=== PATIENT | female | born 1980 | race Caucasian/White ===

== ENCOUNTER 2019-09-12 13:19 | Emergency (ER) | payer BC, SELFPAY ==
[2019-09-12 13:26] VITALS: BP 146/91; PULSE 109; RESP 19; TEMP 37; O2SAT 99; BMI 29.0
--- NOTE | 2019-09-12 13:40 | HMH.EDUTC ---
[facility] [place]: Viral syndrome Disposition: Home, Self-Care Condition on Discharge: Good Instructions: DI for Viral Syndrome Additional Instructions: Drink plenty of fluids. Take tylenol or ibuprofen for pain or fever. Take the medications as directed. Follow up with your regular doctor. GO TO THE ER FOR ANY WORSENING SYMPTOMS FOLLOW THE DIRECTIONS ON THE COVID-19 HAND OUT THAT WE GAVE YOU REGARDING SELF-ISOLATION UNTIL YOU KNOW YOUR COVID-19 RESULTS Prescriptions: Ondansetron [Zofran 4mg ODT] 4 mg PO Q8HP PRN #20 tab.rapdis PRN Reason: Nausea Transmission Status: Received by [facility] Azithromycin [Z-Ronan 250mg Tab*] 250 mg PO UD DOSE PK #6 tab Transmission Status: Received by [facility] Referrals: Silvino Swan MD [Primary Care Provider] - Forms: Work/School Release Time of Disposition: 14:04 Medical Decision Making - Medical Records Medical records reviewed: No: I reviewed the patient's medical records. - Lukas Inquiry Pt receiving controlled substance: No Vital Signs: 09/12/19 13:26 09/12/19 14:05 Temperature 98.6 F 98.6 F Temperature Source Oral Pulse Rate 109 H Pulse Rate [Right Brachial] 109 H Respiratory Rate 19 19 Blood Pressure 146/91 H Blood Pressure [Right Arm] 146/91 H Blood Pressure Mean [Right Arm] 109 Blood Pressure Source [Right Arm] Automatic Cuff Blood Pressure Position [Right Arm] Sitting 02 Sat by Pulse Oximetry 99 Oxygen Delivery Method Room Air Orders (Tests/Meds): ORDERS Category Date Time Status Coronavirus 19 Swab (OUTPT) Routine Lab 09/12/19 13:55 [place] [facility] [place] - General Stated complaint: runny nose, congestion, weakness, v/d Time Seen by Provider: 09/12/19 13:40 Mode of Arrival: Ambulatory Source of Information: Patient Limitations: No Limitations Description of Symptoms (Recalled from Triage Doc. by RN): PATIENT C/O COUGH, RUNNY NOSE, FATIGUE, CHILLS X 3 DAYS HEENT Symptoms (Recalled from RN notes): No Resp Symptoms (Recalled from RN notes): Yes Skin Symptoms (Recalled from RN notes): No MS Symptoms (Recalled from RN notes): No Functional Status (Recalled from RN notes): WNL - History of Present Illness Provider Complaint: She c/o nasal drainage, fever, chills, body aches, and malaise for the past 2 days. She denies any known exposure to COVID-19, but she works at the [employer] so she is around a lot of the public. - Related Data Previous Rx's Medication Instructions Recorded Albuterol Sulfate [Albuterol HFA 1 - 2 puffs IH Q4-6H PRN #1 inh 04/25/19 Inhaler] hydroxyzine pamoate 25 mg capsule 25 mg PO QHS #30 cap 07/17/19 meloxicam 15 mg tablet 15 mg PO DAILY #30 tab 07/17/19 fluoxetine 40 mg capsule 40 mg PO DAILY #90 cap 07/22/19 Azithromycin [Z-Ronan 250mg Tab*] 250 mg PO UD DOSE PK #6 tab 09/12/19 Ondansetron [Zofran 4mg ODT] 4 mg PO Q8HP PRN #20 tab.rapdis 09/12/19 Allergies Allergy/AdvReac Type Severity Reaction Status Date / Time Penicillins Allergy Mild I-RASH Verified 07/17/19 10:25 - Worker's Comp Is this a Worker's Comp case?: No [facility] History - Hepatitis A Screen Drug use history?: No High risk sexual behaviors?: No History of sexually transmitted infection?: No Currently employed?: No Childcare worker?: No Do you have indoor plumbing?: Yes Do you have electricity?: Yes Attestation statement:: This patient has been screened for Hepatitis A risk factors. I have reviewed the patient's past medical history: Yes Medical History: Reports:: Migraine Denies:: Cancer, Diabetes Mellitus Type 1, Diabetes Mellitus Type 2, MRSA Comment: Anxiety, Depression Other Surgeries: Yes: Amputation: No Fractures: No - Social History Smoking Status: Current every day smoker Tobacco Type: cigarettes # Packs/Day (cigarettes): 1 Alcohol Intake: never Alcohol Intake Frequency:: 3 or more drinks per day Substance Use Type: fo
[2019-09-12 14:05] VITALS: BP 146/91; PULSE 109; RESP 19; TEMP 37; O2SAT 99
== END 2019-09-12 14:07 | disposition home or self-care (01) ==
PROVIDERS: Emergency Provider Nurse Practitioner Family; PCP Emergency Medicine
DX: B34.9 Viral infection, unspecified (principal); Z03.818 Encounter for observation for suspected exposure to other biological agents ruled out; F17.210 Nicotine dependence, cigarettes, uncomplicated; Z88.0 Allergy status to penicillin
CPT/HCPCS: 99201; U0003

== ENCOUNTER 2020-11-10 12:17 | Emergency (ER) | payer BC, SELFPAY ==
--- NOTE | 2020-11-10 12:12 | ECG_ITS ---
APPROVED REPORT Exam: Resting ECG HR:75 bpm ECG Measurements Heart Rate 75 AXES CA 112 P 44 QRSd 82 QRS 13 QT 390 T 40 QTc 435 Conclusion Normal sinus rhythm Normal ECG Electronically signed by : Man Funk MD 11/12/2020 17:51:15
[2020-11-10 12:18] VITALS: BP 135/88; PULSE 84; RESP 17; TEMP 37.1; O2SAT 100; BMI 31.4
--- NOTE | 2020-11-10 12:21 | XR_ITS ---
PROCEDURE: XR CHEST PORTABLE CLINICAL HISTORY: cp COMPARISON: CR XR CHEST 2V from 04/25/2019 CR XR CHEST PORTABLE from 04/29/2019 FINDINGS: The cardiomediastinal silhouette and pulmonary vascularity are within normal limits. The lungs are clear without infiltrates, suspicious nodules, or pleural effusions. No acute bony abnormalities. IMPRESSION: No acute findings. Dictated by: Branden Palacios MD 11/10/2020 14:32 Branden Palacios MD in [place] 11/10/2020 14:32
[2020-11-10 12:26] LABS: Basophils # 0.1 K/mm3 (0-0.2); Basophils % 0.9 % (0.1-2.0); Eosinophils # 0.1 K/mm3 (0.0-0.4); Eosinophils % 1.1 % (0.1-12.0); Hematocrit 42.2 % (37.0-47.0); Hemoglobin 13.6 g/dL (12.2-16.2); Lymphocytes # 2.1 K/mm3 (0.7-4.5); Lymphocytes % 26.9 % (10-50); Mean Corpuscular HGB Conc 32.4 g/dL (31.8-35.4); Mean Corpuscular Hemoglobin 31.3 pg (27.0-31.2); Mean Corpuscular Volume 96.7 fl (81-99); Mean Platelet Volume 8.1 fl (7.4-10.4); Monocytes # 0.3 K/mm3 (0.1-1.0); Monocytes % 4.3 % (1.7-9.3); Neutrophils # 5.3 K/mm3 (1.8-7.8); Neutrophils % 66.7 % (37.0-80.0); Platelet Count 404 K/mm3 (142-424); Red Blood Count 4.36 M/mm3 (4.20-5.40); Red Cell Distribution Width 13.7 % (11.5-17.5); White Blood Count 7.9 K/mm3 (4.8-10.8)
[2020-11-10 12:37] LABS: Chloride 108 mmol/L (98-107); Sodium 139 mmol/L (136-145)
--- NOTE | 2020-11-10 12:37 | CT_ITS ---
PROCEDURE: CT HEAD/BRAIN WO CON CLINICAL INDICATION: syncope COMPARISON: No exams were available for comparison TECHNIQUE: Axial images obtained. All CT scans at the facility use one or more dose reduction, viz: automated exposure control, ma/kV adjustment per patient size (including targeted exams where dose is matched to indication, i.e. head), or iterative reconstruction technique. FINDINGS: No midline shift, mass effect, intracranial hemorrhage, hydrocephalus, or extra-axial fluid collection is evident. The calvarium has an unremarkable appearance. A small amount fluid in the left mastoid sinus. Mild mucosal thickening of the ethmoid sinus on the left. Small left maxillary retention cyst laterally at approximately 11 mm. IMPRESSION: No acute intracranial finding Dictated by: Branden Palacios MD 11/10/2020 13:04 Branden Palacios MD in [place] 11/10/2020 13:04
--- NOTE | 2020-11-10 12:37 | HMH.EDGENADL ---
ED Disposition Clinical Impression: Atypical chest pain Disposition: Home, Self-Care Condition on Discharge: Good Referrals: Provider,Referral, [Referring] - (1-2 days) Time of Disposition: 13:56 - Critical Care Critical Care Time: No Attestation: On 11/10/20, the high probability of a clinically significant, sudden or life threatening deterioration of the following system(s) required my full and direct attention, intervention and personal management. The time I documented below is in addition to time spent performing reported procedures but includes the following listed in this critical care notation. Medical Decision Making - Medical Records Medical records reviewed: Yes: I reviewed the patient's medical records. - Lukas Inquiry Pt receiving controlled substance: No Vital Signs: 11/10/20 12:18 11/10/20 13:00 Temperature 98.7 F Temperature Source Oral Pulse Rate 65 Pulse Rate [Right] 84 Respiratory Rate 17 16 Blood Pressure 119/80 Blood Pressure [Right Arm] 135/88 Blood Pressure Mean [Right Arm] 103 Blood Pressure Source [Right Arm] Automatic Cuff Blood Pressure Position [Right Arm] Supine 02 Sat by Pulse Oximetry 100 100 Oxygen Delivery Method Room Air - Lab Data Lab results reviewed: Yes: I reviewed the patient's lab results. Lab Results 11/10/20 10:15: SARS-CoV-2 (PCR) Not detected, Influenza A Untype (PCR) Not detected, Influenza Type B (PCR) Not detected 11/10/20 12:19: WBC 7.9, RBC 4.36, Hgb 13.6, Hct 42.2, MCV 96.7, MCH 31.3 H, MCHC 32.4, RDW 13.7, Plt Count 404, MPV 8.1, Neut % (Auto) 66.7, Lymph % (Auto) 26.9, [place] % (Auto) 4.3, Eos % (Auto) 1.1, Baso % (Auto) 0.9, Neut # (Auto) 5.3, Lymph # (Auto) 2.1, [place] # (Auto) 0.3, Eos # (Auto) 0.1, Baso # (Auto) 0.1 11/10/20 12:19: Sodium 139, Potassium 4.0, Chloride 108 H, Carbon Dioxide 26, Anion Gap 9.0, BUN 8, Creatinine 0.60, Estimated Creat Clear 178, Estimated GFR 112, Est GFR ( Amer) 135, Glucose 99, Calcium 9.0, Total Bilirubin 0.3, AST 29, ALT 15, Alkaline Phosphatase 78, Troponin I < 0.01, Total Protein 7.9, Albumin 4.4, Globulin 3.5 H, Albumin/Globulin Ratio 1.3 Result diagrams: 11/10/20 12:19 11/10/20 12:19 Orders (Tests/Meds): ED MEDICATIONS Discontinued Medications Generic Name Dose Route Start Last Admin Trade Name Mark PRN Reason Stop Dose Admin Aspirin 324 mg 11/10/20 12:21 11/10/20 12:30 Aspirin 81mg Chewable Tablet PO 11/10/20 12:22 324 mg ONCE ONE Administration ORDERS Category Date Time Status XR chest portable Stat Exams 11/10/20 12:21 Taken Troponin I Q3H Lab 11/10/20 15:30 Ordered - Radiology Data #1 Image(s): Chest Image Reviewed: Yes I reviewed the patient's radiology results Preliminary Findings: Normal/NAD - CT Data CT Scan: Head Time Received: 13:00 Preliminary Findings: Normal/NAD - ECG Data Tracing #1 I reviewed this ECG and interpreted as documented below: Normal sinus rhythm, 75 bpm, no ST elevation or depression, normal intervals, no ectopy. ECG initial impression date: 11/10/20 ECG initial impression time: 12:15 - JOHANNY Score for Non-Stemi Age of Patient: 30-39 years old Heart Rate: 70-89 bpm Systolic Blood Pressure: 120-139 mmhg Serum Creatinine: 0.40-0.79 mg/dl CHF [place] Class: IV-Cardiogenic Shock Other Risk Factors: None Non-Stemi Risk Score: 114 Medical Decision Narrative: 40yo F evaluated for chest pain. Patient then adds to her story that she had a syncopal event on Monday. Patient is in no acute distress on initial evaluation. Her NIH stroke score is 0. Patient's physical exam is benign. EKG is benign as above. Chest x-ray shows no acute findings. Patient's heart score is 1. CT of the head is benign. Troponin is negative and what expected to be positive if she had a cardiac pathology as she has had symptoms now for 2 days. Patient is appropriate and stable for discharge. Have encouraged her to follow-up with her PC
[2020-11-10 12:40] LABS: Alanine Aminotransferase 15 U/L (12-78); Albumin Level 4.4 g/dl (3.5-5.0); Albumin/Globulin Ratio 1.3 (1.1-1.8); Alkaline Phosphatase 78 U/L (38-126); Aspartate Amino Transferase 29 U/L (14-36); Bilirubin,Total 0.3 mg/dl (0.2-1.3); Blood Urea Nitrogen 8 mg/dl (7-17); Carbon Dioxide 26 mmol/L (22.0-30.0); Creatinine Clearance Estimated 178 mL/min (50-200); Estimated Glomerular Filt Rate 112 ml/min (>60); GFR (African American) 135 ML/MIN (>60); Globulin 3.5 g/dL (1.3-3.2); Total Protein,Serum 7.9 g/dl (6.3-8.2)
[2020-11-10 12:41] LABS: Glucose 99 mg/dl (74-100)
--- NOTE | 2020-11-10 12:45 | PC.NURSE ---
pt to radiology
[2020-11-10 12:46] LABS: Coronavirus 19, PCR Not Detected (NotDetected); Influenza A, PCR Not Detected (NotDetected); Influenza B, PCR Not Detected (NotDetected)
[2020-11-10 12:54] LABS: Troponin I < 0.01 ng/ml (0.00-0.034)
[2020-11-10 13:00] VITALS: BP 119/80; PULSE 65; RESP 16; O2SAT 100
[2020-11-10 14:05] VITALS: BP 114/79; PULSE 66; RESP 16; O2SAT 100
[2020-11-10 14:24] VITALS: BP 132/90; PULSE 76; RESP 16; TEMP 36.8; O2SAT 98
== END 2020-11-10 14:25 | disposition home or self-care (01) ==
PROVIDERS: Emergency Provider Family Medicine; PCP Physician Assistant
DX: R07.89 Other chest pain (principal); R55 Syncope and collapse; F17.210 Nicotine dependence, cigarettes, uncomplicated; I10 Essential (primary) hypertension; G43.709 Chronic migraine without aura, not intractable, without status migrainosus; Z79.899 Other long term (current) drug therapy; Z20.822 Contact with and (suspected) exposure to COVID-19
CPT/HCPCS: 70450; 71045; 80053; 84484; 85025; 93005; 99283; C9803; U0003; U0005

== ENCOUNTER → 2021-02-23 11:24 | Outpatient (CLI) | payer BC, SELFPAY | PROVIDERS: Visit Provider Nurse Practitioner | DX: Z20.822 Contact with and (suspected) exposure to COVID-19 (principal) | CPT/HCPCS: C9803; U0003; U0005 ==

== ENCOUNTER 2021-02-26 15:56 | Emergency (ER) | payer BC, SELFPAY ==
[2021-02-26 16:05] VITALS: BP 120/82; PULSE 99; RESP 20; TEMP 36.9; O2SAT 97; BMI 29.0
[2021-02-26 16:27] LABS: UTC Influenza A Antigen Negative (Negative); UTC Influenza B Antigen Negative (Negative)
[2021-02-26 16:41] LABS: Strep Scrn Group A (Rapid) Negative (Negative)
--- NOTE | 2021-02-26 16:48 | HMH.EDUTC ---
[facility] [place] Clinical Impression: Sinusitis Qualifiers: Sinusitis location: unspecified location Chronicity: unspecified Qualified Code(s): J32.9 - Chronic sinusitis, unspecified Disposition: Home, Self-Care Condition on Discharge: Good Instructions: Sinusitis, DI for Sinusitis Additional Instructions: *Monitor Temp, Over the counter Motrin or Tylenol as directed/as needed Tylenol every 4 hours and Motrin every 6 hours (as long as your family doctor has told you that you can take it) for fever or pain. and straight to ER if unable to lower temp less than 101.0 after medication given *Warm salt water gargles may help to soothe the throat *Throat Lozenges *Warm fluids like tea with honey may help to soothe the throat *Sleep elevated *Humidifier/Vaporizer Your throat swab was sent for culture. Those results are typically sent to your primary care. Be sure to follow up in 2-3 days with your family doctor/primary care physician if no improvement so they can review those result and treat if necessary. If you don?t have a primary care doctor, I recommend you get one but in the mean time, you will have to return to a walk in clinic Follow up IMMEDIATELY for new or worsening symptoms or no Noticeable improvement over the next 48-72 hours. 911 for difficulty breathing or swallowing You were tested for today for COVID19 your test result should be back in the next 24-48 hours, you may check your results on the [facility] my health Portal if you have trouble logging on you can call Tech Support You was given a handout with instructions for Self Quarantine and Self isolation for while you wait on test results and what to do if they are positive If you are positive the Health Dept will be contacting you also Make sure to take your Vitamins Vit. C Vit D and Zinc if you can take them Prescriptions: methylPREDNISolone [Medrol 4mg tab] 4 mg PO DIRECTED #21 tab Transmission Status: Pending to [facility] Cefdinir [Omnicef 300mg Capsule] 300 mg PO BID #20 cap Transmission Status: Pending to [facility] Ondansetron [Zofran 4mg ODT] 4 mg PO TIDP PRN #10 tab PRN Reason: Nausea Transmission Status: Pending to [facility] Referrals: Betty Escobar PA [Primary Care Provider] - As needed Time of Disposition: 17:03 Medical Decision Making - Lukas Inquiry Pt receiving controlled substance: No Lukas was queried for this patient: No Vital Signs: 02/26/21 16:05 Temperature 98.4 F Temperature Source Oral Pulse Rate [Right Brachial] 99 H Respiratory Rate 20 Blood Pressure [Right Arm] 120/82 Blood Pressure Mean [Right Arm] 94 Blood Pressure Source [Right Arm] Automatic Cuff Blood Pressure Position [Right Arm] Sitting 02 Sat by Pulse Oximetry 97 Oxygen Delivery Method Room Air - Lab Data Lab results reviewed: Yes: I reviewed the patient's lab results. Lab Results 02/26/21 16:18: Group A Strep Rapid Negative 02/26/21 16:19: Influenza Type A Ag Negative, Influenza Type B Ag Negative Orders (Tests/Meds): ORDERS Category Date Time Status Strep Screen Confirmation Stat Micro 02/26/21 16:18 Received Medical Decision Narrative: Patient states that she has taken zofran before in the past without complications or reactions and also has taken Cefdinir and medrol without complication or reactions [facility] [place] HPI - General Stated complaint: asif, ROBERSON Time Seen by Provider: 02/26/21 16:54 Mode of Arrival: Ambulatory Source of Information: Patient Limitations: No Limitations Description of Symptoms (Recalled from Triage Doc. by RN): PATIENT C/O HEADACHE, VOMITING, DIARRHEA X 4 DAYS. HAD NEGATIVE COVID TEST A COUPLE OF DAYS AGO HEENT Symptoms (Recalled from RN notes): Yes Resp Symptoms (Recalled from RN notes): No Skin Symptoms (Recalled from RN notes): No MS Symptoms (Recalled from RN notes): No Functional Status (Recalled from RN notes): WNL - History of Present Illness Provider Complai
[2021-02-26 17:08] VITALS: BP 120/82; PULSE 99; RESP 20; TEMP 36.9; O2SAT 97
[2021-02-26 17:16] LABS: Adenovirus,PCR Not Detected (NotDetected); Bordetella Pertussis Not Detected (NotDetected); Chlamydophila Pneumoniae, PCR Not Detected (NotDetected); Coronavirus 19, PCR Not Detected (NotDetected); Coronavirus 229E Not Detected (NotDetected); Coronavirus NL63 Not Detected (NotDetected); Coronavirus OC43 Not Detected (NotDetected); Coronovirus HKU1,PCR Not Detected (NotDetected); Human Metapneumovirus Not Detected (NotDetected); Influenza A, PCR Not Detected (NotDetected); Influenza AH1, 2009 Not Detected (NotDetected); Influenza AH1, PCR Not Detected (NotDetected); Influenza AH3,PCR Not Detected (NotDetected); Influenza B, PCR Not Detected (NotDetected); Mycoplasma Pneumoniae, PCR Not Detected (NotDetected); Parainfluenza 1, PCR Not Detected (NotDetected); Parainfluenza 2, PCR Not Detected (NotDetected); Parainfluenza 3, PCR Not Detected (NotDetected); Parainfluenza 4, PCR Not Detected (NotDetected); Respiratory Syncytial Virus Not Detected (NotDetected); Rhinovirus/Enterovirus Not Detected (NotDetected)
== END 2021-02-26 17:12 | disposition home or self-care (01) ==
PROVIDERS: Emergency Provider Nurse Practitioner; PCP Physician Assistant
DX: J32.9 Chronic sinusitis, unspecified (principal); Z20.822 Contact with and (suspected) exposure to COVID-19; F41.8 Other specified anxiety disorders; F17.210 Nicotine dependence, cigarettes, uncomplicated
CPT/HCPCS: 87430; 87581; 87632; 87798; 87804; 99203; C9803; G0463; U0003; U0005

== ENCOUNTER 2021-03-22 11:18 | Emergency (ER) | payer BC, SELFPAY ==
[2021-03-22 12:20] VITALS: BP 139/90; PULSE 76; RESP 18; TEMP 36.8; O2SAT 98; BMI 28.2
[2021-03-22 12:41] LABS: Apearance,Urine Clear (Clear); Color,Urine Yellow (Yellow); PH,Urine 7.5 (5.0-8.5)
[2021-03-22 12:42] LABS: Glucose,Urine (UA) Negative (Negative); Ketones,Urine TRACE (Negative); Protein,Urine Trace (Negative)
[2021-03-22 12:43] LABS: Bilirubin,Urine Negative (Negative); Blood, Urine Negative (Negative); Urobilinogen,Urine 0.2 EU/dl (0.2)
[2021-03-22 12:44] LABS: UTC Leukocyte Esterase,Urine Negative (Negative); UTC Nitrate,Urine Negative (Negative)
--- NOTE | 2021-03-22 12:57 | HMH.EDUTC ---
[facility] [place] Clinical Impression: Burning with urination, Flank pain Disposition: Home, Self-Care Condition on Discharge: Good Instructions: Nitrofurantoin, DI for Urinary Tract Infection (UTI), Phenazopyridine Additional Instructions: *Increase fluids. Water not Soda or Tea *Start antibiotic immediately and be sure to take as ordered for the FULL length of time although you should start to see improvement over the next 48 hours *Pyridium as needed Remember this medication will turn your urine [place]. This is normal but it will stain what ever it gets on *You should not use Pyridium for more than 48 hours. If so , follow up with your primary physician to review urine culture and ensure that antibiotic is adequate for infection *Be SURE to follow up anytime for new or worsening symptoms with your family doctor. AND in 48 hours for urine culture results with your family doctor, if you do not have a doctor then you may call back to the [facility] for urine culture results and further treatment. We do recommend that you choose and establish care with a Primary Care Physician. AND follow up with them in 10-14 days to repeat UA to ensure infection is resolved and blood no longer present *Be sure to let your PCP know that we sent urine cultures from the [facility] so they can follow up to ensure that you area the on the correct antibiotic Call your doctor office and make appointment for 48 hours (2 days from today) to follow up and get the results of your urine culture and further treatment Prescriptions: Nitrofurantoin Monohyd/M-Cryst [Macrobid 100 mg Capsule] 100 mg PO BID 5 Days #10 cap Transmission Status: Pending to [facility] Phenazopyridine HCl [Pyridium 200mg Tablet] 200 pow PO TID #6 tab Transmission Status: Pending to [facility] Referrals: Betty Escobar PA [Primary Care Provider] - As needed Time of Disposition: 13:08 Medical Decision Making - Lukas Inquiry Pt receiving controlled substance: No Lukas was queried for this patient: No Vital Signs: 03/22/21 12:20 Temperature 98.3 F Temperature Source Oral Pulse Rate [Right Brachial] 76 Respiratory Rate 18 Blood Pressure [Right Arm] 139/90 Blood Pressure Mean [Right Arm] 106 Blood Pressure Source [Right Arm] Automatic Cuff Blood Pressure Position [Right Arm] Sitting 02 Sat by Pulse Oximetry 98 Oxygen Delivery Method Room Air - Lab Data Lab results reviewed: Yes: I reviewed the patient's lab results. Lab Results 03/22/21 12:37: Urine Color Yellow, Urine Appearance Clear, Urine pH 7.5, Ur Specific [place] 1.020, Urine Protein Trace, Urine Glucose (UA) Negative, Urine Ketones Trace, Urine Blood Negative, Urine Nitrate Negative, Urine Bilirubin Negative, Urine Urobilinogen 0.2, Ur Leukocyte Esterase Negative Medical Decision Narrative: Discussed with patient and recommended transfer to the ED for further work up and and evaluation and patient declined States that she would make appointment with OBGYN and follow up with PCP or return to the ED if pain worsens she does have history of Kidney stones [facility] [place] HPI - General Stated complaint: lower left side pains Time Seen by Provider: 03/22/21 12:57 Mode of Arrival: Ambulatory Source of Information: Patient Limitations: No Limitations Description of Symptoms (Recalled from Triage Doc. by RN): PATIENT C/O PAIN IN LOWER LEFT SIDE/BACK PAIN X 3 DAYS. DESCRIBES IT SHARP AND THROBBING. HEENT Symptoms (Recalled from RN notes): No Resp Symptoms (Recalled from RN notes): No Skin Symptoms (Recalled from RN notes): No MS Symptoms (Recalled from RN notes): No Functional Status (Recalled from RN notes): WNL - History of Present Illness Provider Complaint: Patient states that she has been having pain in her left lower back around to her side State that she feels like she may have a UTI State that she also has a history of ovarian cysts and hasnt seen OBGYN in a little while States that today she wa
[2021-03-22 13:10] VITALS: BP 139/90; PULSE 76; RESP 18; TEMP 36.8; O2SAT 98
== END 2021-03-22 13:13 | disposition home or self-care (01) ==
PROVIDERS: Emergency Provider Nurse Practitioner; PCP Physician Assistant
DX: R30.0 Dysuria (principal); R10.32 Left lower quadrant pain; F17.210 Nicotine dependence, cigarettes, uncomplicated
CPT/HCPCS: 81003; 99202; G0463

== ENCOUNTER → 2021-03-23 09:45 | Outpatient (CLI) | payer BC, SELFPAY ==
[2021-03-24 07:05] LABS: Covid-19 Nasal PCR Sendout Lex POSITIVE
== END ==
PROVIDERS: PCP Physician Assistant; Visit Provider Nurse Practitioner
DX: U07.1 COVID-19 (principal)
CPT/HCPCS: C9803; U0004; U0005

== ENCOUNTER 2021-04-27 18:54 | Emergency (ER) | payer BC, SELFPAY ==
[2021-04-27 20:34] VITALS: BP 163/84; PULSE 78; RESP 16; TEMP 37.1; O2SAT 100; BMI 29.7
[2021-04-27 20:43] LABS: UTC Influenza A Antigen Negative (Negative); UTC Influenza B Antigen Negative (Negative)
--- NOTE | 2021-04-27 20:56 | HMH.EDUTC ---
[facility] [place] Disposition Clinical Impression: Sinusitis Qualifiers: Sinusitis location: unspecified location Chronicity: unspecified Qualified Code(s): J32.9 - Chronic sinusitis, unspecified Disposition: Home, Self-Care Condition on Discharge: Good Instructions: Sinusitis, DI for Sinusitis Additional Instructions: *Monitor Temp, Over the counter Motrin or Tylenol as directed/as needed Tylenol every 4 hours and Motrin every 6 hours (as long as your family doctor has told you that you can take it) for fever or pain. and straight to ER if unable to lower temp less than 101.0 after medication given *Warm salt water gargles may help to soothe the throat *Throat Lozenges *Warm fluids like tea with honey may help to soothe the throat *Sleep elevated *Humidifier/Vaporizer Take medication as prescribed Your throat swab was sent for culture. Those results are typically sent to your primary care. Be sure to follow up in 2-3 days with your family doctor/primary care physician if no improvement so they can review those result and treat if necessary. If you don?t have a primary care doctor, I recommend you get one but in the mean time, you will have to return to a walk in clinic Follow up IMMEDIATELY for new or worsening symptoms or no Noticeable improvement over the next 48-72 hours. 911 for difficulty breathing or swallowing Prescriptions: Benzonatate [Benzonatate 100mg cap] 100 mg PO Q8HP PRN #15 cap PRN Reason: Cough Transmission Status: Pending to [facility] methylPREDNISolone [Medrol 4mg tab] 4 mg PO DIRECTED #21 tab Transmission Status: Pending to [facility] Azithromycin [Zithromax 250mg tab] 250 mg PO DIRECTED #6 tab Transmission Status: Pending to [facility] Referrals: Betty Escobar PA [Primary Care Provider] - Forms: Work/School Release Medical Decision Making - Lukas Inquiry Pt receiving controlled substance: No Lukas was queried for this patient: No Vital Signs: 04/27/21 20:34 Temperature 98.7 F Temperature Source Oral Pulse Rate [Left] 78 Respiratory Rate 16 Blood Pressure [Right Arm] 163/84 H Blood Pressure Mean [Right Arm] 110 02 Sat by Pulse Oximetry 100 - Lab Data Lab results reviewed: Yes: I reviewed the patient's lab results. Lab Results 04/27/21 20:31: Influenza Type A Ag Negative, Influenza Type B Ag Negative Medical Decision Narrative: Patient states that she has taken azithromycin in the past without complications or reactions [facility] [place] HPI - General Stated complaint: sore throat,ROBERSON,asif,runny nose Time Seen by Provider: 04/27/21 20:56 Mode of Arrival: Ambulatory Source of Information: Patient Limitations: No Limitations Description of Symptoms (Recalled from Triage Doc. by RN): pt c/o a cough, congestion, body aches and ROBERSON x2 days. HEENT Symptoms (Recalled from RN notes): Yes Resp Symptoms (Recalled from RN notes): Yes Skin Symptoms (Recalled from RN notes): No MS Symptoms (Recalled from RN notes): No Functional Status (Recalled from RN notes): wnl - History of Present Illness Provider Complaint: Patient states that she has been sick for over a week States that she has been having sinus pain and pressure, sore throat and cough States that she has continued to get worse states that today her sinus congestion and pressure behind her eyes has continued so she came in to get checked out - Related Data Home Medications Medication Instructions Recorded Confirmed Fluoxetine HCl [Prozac] 60 mg PO DAILY 02/26/21 03/22/21 lisinopriL [Lisinopril] 20 mg PO DAILY 02/26/21 03/22/21 Previous Rx's Medication Instructions Recorded Nitrofurantoin Monohyd/M-Cryst 100 mg PO BID 5 Days #10 cap 03/22/21 [Macrobid 100 mg Capsule] Phenazopyridine HCl [Pyridium 200 pow PO TID #6 tab 03/22/21 200mg Tablet] Azithromycin [Zithromax 250mg 250 mg PO DIRECTED #6 tab 04/27/21 tab] Benzonatate [Benzonatate 100mg 100 mg PO Q8H
[2021-04-27 21:24] VITALS: BP 163/84; PULSE 78; RESP 16; TEMP 37.1
== END 2021-04-27 21:26 | disposition home or self-care (01) ==
PROVIDERS: Emergency Provider Nurse Practitioner; PCP Physician Assistant
DX: J32.9 Chronic sinusitis, unspecified (principal); F17.210 Nicotine dependence, cigarettes, uncomplicated
CPT/HCPCS: 87804; 99213; G0463

== ENCOUNTER → 2021-06-15 16:00 | Outpatient (CLI) | payer BC, SELFPAY ==
[2021-06-17 07:13] LABS: HIV Screen 4th Generation wRfx Non Reactive (Non Reactive)
[2021-06-17 12:17] LABS: Rapid Plasma Reagin Ab Titer Non Reactive (NonRea<1:1)
[2021-06-17 23:08] LABS: Neisseria gonorrhoeae, NAA Negative (Negative)
[2021-07-03 17:46] LABS: Hep A Ab, IgM NEGATIVE; Hepatitis B Core Antibody IgM NEGATIVE; Hepatitis B Surface Antigen NEGATIVE; Hepatitis C Antibody <0.1
[2021-07-03 17:47] LABS: HSV 2 IgG, Type Spec <0.91
== END ==
PROVIDERS: Visit Provider Family Medicine
DX: Z11.3 Encounter for screening for infections with a predominantly sexual mode of transmission (principal); Z11.4 Encounter for screening for human immunodeficiency virus [HIV]
CPT/HCPCS: 80074; 86592; 86695; 86703; 86790; 87491; 87591; G0432

== ENCOUNTER 2021-06-20 16:47 | Emergency (ER) | payer BC, SELFPAY ==
[2021-06-20 16:50] VITALS: BP 156/96; PULSE 89; RESP 19; TEMP 36.8; O2SAT 99; BMI 33.5
[2021-06-20 17:03] VITALS: BP 156/96; PULSE 89; RESP 19; TEMP 36.8; O2SAT 99
--- NOTE | 2021-06-20 17:05 | HMH.EDUTC ---
[place] Disposition Clinical Impression: Dehydration, Dizziness Disposition: Home, Self-Care Condition on Discharge: Good Instructions: DI for Dehydration -- Adult Additional Instructions: do not take adipex until told to by pcp call pcp in am discuss meds return or be seen in ed for any concerns or issues Referrals: Betty Escobar PA [Primary Care Provider] - Time of Disposition: 18:14 Medical Decision Making - [place] Inquiry Pt receiving controlled substance: No Vital Signs: 06/20/21 16:50 06/20/21 17:03 Temperature 98.2 F 98.2 F Temperature Source Oral Pulse Rate 89 Pulse Rate [Right Brachial] 89 Respiratory Rate 19 19 Blood Pressure 156/96 H Blood Pressure [Right Arm] 156/96 H Blood Pressure Mean [Right Arm] 116 Blood Pressure Source [Right Arm] Automatic Cuff Blood Pressure Position [Right Arm] Sitting 02 Sat by Pulse Oximetry 99 Oxygen Delivery Method Room Air - Lab Data Lab Results 06/20/21 17:15: WBC 9.6, RBC 4.49, Hgb 14.3, Hct 42.9, MCV 95.5, MCH 31.9 H, MCHC 33.4, RDW 15.0, Plt Count 496 H, MPV 7.9, Neut % (Auto) 70.4, Lymph % (Auto) 22.1, [place] % (Auto) 4.9, Eos % (Auto) 0.9, Baso % (Auto) 1.7, Neut # (Auto) 6.8, Lymph # (Auto) 2.1, [place] # (Auto) 0.5, Eos # (Auto) 0.1, Baso # (Auto) 0.2 06/20/21 17:15: Sodium 135 L, Potassium 3.7, Chloride 101, Carbon Dioxide 26, Anion Gap 11.7, BUN 9, Creatinine 0.80, Estimated Creat Clear 142, Estimated GFR 80, Est GFR ( Amer) 97, Glucose 119 H, Calcium 9.7, Total Bilirubin 0.9, AST 38 H, ALT 25, Alkaline Phosphatase 98, Total Protein 8.0, Albumin 4.5, Globulin 3.5 H, Albumin/Globulin Ratio 1.3 Result diagrams: 06/20/21 17:15 06/20/21 17:15 Orders (Tests/Meds): ED MEDICATIONS Generic Name Dose Route Start Last Admin Trade Name Freq PRN Reason Stop Dose Admin Sodium Chloride 1,000 mls @ 999 mls/hr 06/20/21 17:30 06/20/21 17:24 Sod Chlor 0.9% 1000ml Bag IV 06/20/21 18:30 999 mls/hr .Q1H1M [facility] Administration Medical Decision Narrative: pt states improvement after iv fluids [place] HPI - General Chief complaint: [facility] Stated complaint: weak,muscle cramps Time Seen by Provider: 06/20/21 17:06 Mode of Arrival: Ambulatory Source of Information: Patient Limitations: No Limitations Description of Symptoms (Recalled from Triage Doc. by RN): PATIENT C/O MUSCLE WEAKNESS, CRAMPING, AND DIZZINESS SINCE STARTING NEW MEDS (ADIPEX AND LISINOPRIL/HCTZ) HEENT Symptoms (Recalled from RN notes): No Resp Symptoms (Recalled from RN notes): No Skin Symptoms (Recalled from RN notes): No MS Symptoms (Recalled from RN notes): No Functional Status (Recalled from RN notes): WNL - History of Present Illness Provider Complaint: 40 yr old female presents for dizziness, weakness and muscle cramping since starting a new bp med and adipex. pt states she did this once before when she was on hctz - Related Data Home Medications Medication Instructions Recorded Confirmed Lisinopril/Hydrochlorothiazide 1 tab PO DAILY 06/20/21 06/20/21 [Lisinopril-Hctz 20-12.5 mg Tab] Phentermine HCl 18.75 mg PO DAILY 06/20/21 06/20/21 Allergies Allergy/AdvReac Type Severity Reaction Status Date / Time Penicillins Allergy Mild I-RASH Verified 06/15/21 15:16 - Worker's Comp Is this a Worker's Comp case?: No [facility] History - Hepatitis A Screen Attestation statement:: This patient has been screened for Hepatitis A risk factors. I have reviewed the patient's past medical history: Yes Medical History: Reports:: Migraine Denies:: Cancer, Diabetes Mellitus Type 1, Diabetes Mellitus Type 2, MRSA Comment: Anxiety, Depression Other Surgeries: Yes: Amputation: No Fractures: No - Social History Smoking Status: Current every day smoker Tobacco Type: cigarettes # Packs/Day (cigarettes): 1 Alcohol Intake: current Alcohol Intake Frequency:: holidays/special occasions only Substance Use Type: former substanc
[2021-06-20 17:37] LABS: Basophils # 0.2 K/mm3 (0-0.2); Basophils % 1.7 % (0.1-2.0); Eosinophils # 0.1 K/mm3 (0.0-0.4); Eosinophils % 0.9 % (0.1-12.0); Hematocrit 42.9 % (37.0-47.0); Hemoglobin 14.3 g/dL (12.2-16.2); Lymphocytes # 2.1 K/mm3 (0.7-4.5); Lymphocytes % 22.1 % (10-50); Mean Corpuscular HGB Conc 33.4 g/dL (31.8-35.4); Mean Corpuscular Hemoglobin 31.9 pg (27.0-31.2); Mean Corpuscular Volume 95.5 fl (81-99); Mean Platelet Volume 7.9 fl (7.4-10.4); Monocytes # 0.5 K/mm3 (0.1-1.0); Monocytes % 4.9 % (1.7-9.3); Neutrophils # 6.8 K/mm3 (1.8-7.8); Neutrophils % 70.4 % (37.0-80.0); Platelet Count 496 K/mm3 (142-424); Red Blood Count 4.49 M/mm3 (4.20-5.40); White Blood Count 9.6 K/mm3 (4.8-10.8)
[2021-06-20 17:38] LABS: Chloride 101 mmol/L (98-107); Potassium 3.7 mmoL/L (3.5-5.1); Sodium 135 mmol/L (136-145)
[2021-06-20 17:40] LABS: Alanine Aminotransferase 25 U/L (12-78); Aspartate Amino Transferase 38 U/L (14-36); Blood Urea Nitrogen 9 mg/dl (7-17); Creatinine Clearance Estimated 142 mL/min (50-200); Estimated Glomerular Filt Rate 80 ml/min (>60); GFR (African American) 97 ML/MIN (>60)
[2021-06-20 17:41] LABS: Albumin Level 4.5 g/dl (3.5-5.0); Albumin/Globulin Ratio 1.3 (1.1-1.8); Alkaline Phosphatase 98 U/L (38-126); Anion Gap 11.7 mEq/L (5-15); Bilirubin,Total 0.9 mg/dl (0.2-1.3); Calcium 9.7 mg/dl (8.4-10.2); Carbon Dioxide 26 mmol/L (22.0-30.0); Globulin 3.5 g/dL (1.3-3.2); Glucose 119 mg/dl (74-100)
== END 2021-06-20 18:25 | disposition home or self-care (01) ==
PROVIDERS: Emergency Provider Nurse Practitioner Family; PCP Physician Assistant
DX: R42 Dizziness and giddiness (principal); E86.0 Dehydration; I10 Essential (primary) hypertension; G43.909 Migraine, unspecified, not intractable, without status migrainosus; G47.00 Insomnia, unspecified; J32.9 Chronic sinusitis, unspecified; F32.A Depression, unspecified; F41.9 Anxiety disorder, unspecified; F17.210 Nicotine dependence, cigarettes, uncomplicated; Z79.1 Long term (current) use of non-steroidal anti-inflammatories (NSAID); Z79.899 Other long term (current) drug therapy; Z88.0 Allergy status to penicillin
CPT/HCPCS: 80053; 85025; 96360; 99213; G0463

== ENCOUNTER 2021-07-04 09:11 | Emergency (ER) | payer BC, SELFPAY ==
[2021-07-04 10:00] VITALS: BP 103/74; PULSE 84; RESP 19; TEMP 36.7; O2SAT 100; BMI 30.5
--- NOTE | 2021-07-04 10:09 | XR_ITS ---
PROCEDURE INFORMATION: Exam: XR Left Shoulder Exam date and time: 07/04/2021 10:11 AM Age: 40 years old Clinical indication: Pain; Shoulder; Left TECHNIQUE: Imaging protocol: XR Left shoulder. Views: 2 or more views. COMPARISON: CR XR CHEST PORTABLE 11/10/2020 12:33 PM FINDINGS: Bones/joints: Widened acromioclavicular joint to 1 cm, stable since previous chest radiograph in 2020. Recommend correlation with point tenderness. No acute fracture. Soft tissues: Normal. IMPRESSION: 1. Widened acromioclavicular joint to 1 cm, stable since previous chest radiograph in 2020. Recommend correlation with point tenderness. 2. No acute fracture.
--- NOTE | 2021-07-04 10:42 | HMH.EDUTC ---
[facility] [place] Disposition Clinical Impression: Shoulder strain Qualifiers: Encounter type: initial encounter Laterality: left Qualified Code(s): S46.912A - Strain of unspecified muscle, fascia and tendon at shoulder and upper arm level, left arm, initial encounter Disposition: Home, Self-Care Condition on Discharge: Good Instructions: DI for Bursitis, DI for Shoulder Pain Additional Instructions: *Ibuprofen agustin 6 hours with meal as needed for pain/inflammation *Not additional anti-inflammatory like motrin, aleve, advil with the above amount of ibuprofen. You can still take Tylenol every 4 hours as needed if you need something else for pain *Ice 20 minutes every 2 hours for the first 48 hours after the initial injury followed by moist heat every 20 minutes 3-4 times a day to affected area Take oral steriods as prescribed *Keep this area active, no movement leads to more stiffness, However take it easy and avoid heavy lifting pushing or pulling *Follow up with you family doctor if no improvement for further treatment Return if needed Straight to ER if any life threatening symptoms Prescriptions: Ibuprofen [Ibuprofen 600mg Tablet] 600 mg PO Q6HP PRN #20 tab PRN Reason: Moderate Pain Transmission Status: Pending to [facility] methylPREDNISolone [Medrol 4mg tab] 4 mg PO DIRECTED #21 tab Transmission Status: Pending to [facility] Referrals: Betty Escobar PA [Primary Care Provider] - As needed Kulwant Medrano JR, MD [Physician] - As needed Time of Disposition: 10:58 Medical Decision Making - Lukas Inquiry Pt receiving controlled substance: No Lukas was queried for this patient: No Vital Signs: 07/04/21 10:00 Temperature 98.0 F Temperature Source Oral Pulse Rate [Right Brachial] 84 Respiratory Rate 19 Blood Pressure [Right Arm] 103/74 L Blood Pressure Mean [Right Arm] 83 Blood Pressure Source [Right Arm] Automatic Cuff Blood Pressure Position [Right Arm] Sitting 02 Sat by Pulse Oximetry 100 Oxygen Delivery Method Room Air Orders (Tests/Meds): ORDERS Category Date Time Status XR shoulder LT min 2V Stat Exams 07/04/21 10:09 Taken - Radiology Data #1 Image(s): Shoulder Image Reviewed: Yes I have reviewed radiologist's interpretation IMPRESSION: 1. Widened acromioclavicular joint to 1 cm, stable since previous chest radiograph in 2020. Recommend correlation with point tenderness. 2. No acute fracture. [facility] [place] HPI - General Stated complaint: left shoulder pains, no accident Time Seen by Provider: 07/04/21 10:42 Mode of Arrival: Ambulatory Source of Information: Patient Limitations: No Limitations Description of Symptoms (Recalled from Triage Doc. by RN): PATIENT C/O PAIN TO LEFT SHOULDER. SHE STATES IT HURTS WORSE WITH MOVEMENT AND SHE CAN'T RAISE HER ARM HEENT Symptoms (Recalled from RN notes): No Resp Symptoms (Recalled from RN notes): No Skin Symptoms (Recalled from RN notes): No MS Symptoms (Recalled from RN notes): Yes Functional Status (Recalled from RN notes): WNL - History of Present Illness Provider Complaint: Patient states that she was doing alot of heavy lifting yesterday and she noticed last night she was having some pain in her left shoulder that was worse when she tried to raise arm or lay on it States that this morning she is still having some pain when she raises her arm so she came in denies chest pain denies radiation of pain and states pain worse with movement of shoulder States that she is currently on antibiotics but only has a day left of them - Related Data Home Medications Medication Instructions Recorded Confirmed Lisinopril/Hydrochlorothiazide 1 tab PO DAILY 06/20/21 06/24/21 [Lisinopril-Hctz 20-12.5 mg Tab] Phentermine HCl 18.75 mg PO DAILY 06/20/21 06/24/21 Previous Rx's Medication Instructions Recorded levofloxacin 250 mg tablet 250 mg PO DAILY 5 Days #5 tab 06/29/21 metronidazole 500 mg tablet 500 mg PO BID #14 tab
[2021-07-04 11:02] VITALS: BP 103/74; PULSE 84; RESP 19; TEMP 36.7; O2SAT 100
== END 2021-07-04 11:09 | disposition home or self-care (01) ==
PROVIDERS: Emergency Provider Nurse Practitioner; PCP Physician Assistant
DX: S46.912A Strain of unspecified muscle, fascia and tendon at shoulder and upper arm level, left arm, initial encounter (principal); X50.0XXA Overexertion from strenuous movement or load, initial encounter; I10 Essential (primary) hypertension; Z88.0 Allergy status to penicillin; Z72.0 Tobacco use
CPT/HCPCS: 73030; 99212; G0463